=== PATIENT | female | born 1990 | race Caucasian/White ===

== ENCOUNTER 2021-09-02 21:31 | Observation (INO) ==
[2021-09-02] MEDS ORDERED: Piperacillin/Tazobac ADVAN 3.375 GM in NS 0.9% 100 ml BAG 100 ML IV ONE (23:47)
[2021-09-03] MEDS ORDERED: Levalbuterol HFA INHALER MDI INH PRN (01:55)
[2021-09-03] MEDS ORDERED: Zosyn per Pharmacy NOTE FOLLOW UP SCH (02:00)
[2021-09-03 02:07] LABS: ABS Eosinophils 0.1 10^3/ul (0-0.6); ABS Lymphocytes 2.8 10^3/ul (1.0-4.8); ABS Monocytes 0.7 10^3/ul (0-0.8); ABS Neutrophils 3.9 10^3/ul (1.5-7.7); Eosinophil % 1.7 %; Hematocrit 40 % (35-47); Hemoglobin 13.9 g/dL (12.0-16.0); Lymphocyte % 36.8 %; Mean Corpuscular HGB Conc 35 g/dL (31-36); Mean Corpuscular Hemoglobin 33 pg (27-31); Mean Corpuscular Volume 94 fL (80-97); Mean Platelet Volume 7.3 fL (7.4-10.4); Nucleated Red Blood Cells % 0.1; Platelet Count 258 10^3/uL (150-450); Red Blood Count 4.26 10^6 /uL (3.70-4.87); Red Cell Distribution Width 14 % (10-15); White Blood Count 7.5 10^3/uL (3.5-10.8)
[2021-09-03 02:26] LABS: ALT 14 U/L (7-52); AST 14 U/L (13-39); Albumin 4.1 g/dL (3.2-5.2); Albumin/Globulin Ratio 1.6 (1-3); Alkaline Phosphatase 54 U/L (35-149); Anion Gap 10 mmol/L (2-11); Blood Urea Nitrogen 8 mg/dL (6-24); C Reactive Protein 27.48 mg/L (<8.01); CO2 Carbon Dioxide 23 mmol/L (22-32); Chloride 106 mmol/L (101-111); Globulin 2.6 g/dL (2-4); Glucose 83 mg/dL (70-100); Potassium 3.8 mmol/L (3.5-5.0); Sodium 139 mmol/L (135-145); Total Protein 6.7 g/dL (6.4-8.9); eGFR CKD-EPI 126.9 (>60)
[2021-09-03 02:32] LABS: HCG Pregnancy < 0.60 mIU/mL
[2021-09-03] MEDS: ZOSYN 3.375 GM Q8H per EXTENDED INFUSION IV SCH ×3 (07:57→23:46)
[2021-09-03] MEDS ORDERED: Gadoteridol (CONTRAST) 279.3 MG/ML 10 ML IV ONE (12:40)
[2021-09-03] MEDS ORDERED: Ondansetron 4 mg VIAL 2 MG/ML 2 ml VIAL IV PRN (16:58)
[2021-09-03] MEDS: ELAGOLIX 150 MG PO SCH (18:32)
[2021-09-04] MEDS: ZOSYN 3.375 GM Q8H per EXTENDED INFUSION IV SCH ×2 (03:27→12:49)
[2021-09-04 06:16] LABS: Hematocrit 41 % (35-47); Hemoglobin 13.7 g/dL (12.0-16.0); Mean Corpuscular HGB Conc 34 g/dL (31-36); Mean Corpuscular Hemoglobin 32 pg (27-31); Mean Corpuscular Volume 95 fL (80-97); Mean Platelet Volume 7.7 fL (7.4-10.4); Platelet Count 261 10^3/uL (150-450); Red Blood Count 4.28 10^6 /uL (3.70-4.87); Red Cell Distribution Width 13 % (10-15); White Blood Count 5.9 10^3/uL (3.5-10.8)
[2021-09-04 06:33] LABS: C Reactive Protein 11.11 mg/L (<8.01); Calcium 8.8 mg/dL (8.6-10.3); Potassium 3.8 mmol/L (3.5-5.0); eGFR CKD-EPI 120.5 (>60)
[2021-09-04] MEDS: ELAGOLIX 150 MG PO SCH (09:19)
[2021-09-04] MEDS ORDERED: Lactated Ringers 500 ml BAG 500 ML IV ONE (11:33)
[2021-09-04] MEDS ORDERED: Lactated Ringers 1000 ml BAG 500 ML IV ONE (13:00)
[2021-09-04 15:52] VITALS: BP 104/59
== END 2021-09-04 17:30 | disposition home or self-care (01) ==
LOC: EDHOLD 21:31 → ED 21:31 → SUATTDRO 09-03 01:15 → MED 09-03 17:16
PROVIDERS: ADMIT Internal Medicine; ATTEND Hospitalist